=== PATIENT | female | born 1970 | race American Indian/Alaskan Native ===

== ENCOUNTER 2017-02-15 08:56 | Emergency (ER) | payer SELFPAY ==
[2017-02-15 10:32] LABS: Basophils % (Auto) 0.3 % (0.0-1.8); Eosinophils % (Auto) 0.4 % (0.0-4.3); Hematocrit 32.7 % (30.3-42.9); Hemoglobin 10.9 gm/dl (10.1-14.3); Lymphocytes # (Auto) 1.2 K/mm3 (1.2-5.4); Lymphocytes % (Auto) 21.1 % (13.4-35.0); Mean Corpuscular HGB Conc 33 % (30-34); Mean Corpuscular Hemoglobin 31 pg (28-32); Mean Corpuscular Volume 94 fl (79-97); Monocytes # (Auto) 0.8 K/mm3 (0.0-0.8); Monocytes % (Auto) 13.3 % (0.0-7.3); Platelet Count 273 K/mm3 (140-440); Red Blood Count 3.49 M/mm3 (3.65-5.03); Red Cell Distribution Width 15.2 % (13.2-15.2)
[2017-02-15 10:43] LABS: INR 0.87 (0.87-1.13); Partial Thromboplastin Time 32.2 Sec. (24.2-36.6)
[2017-02-15 10:46] LABS: BUN/Creatinine Ratio 23; Blood Urea Nitrogen 9 mg/dL (7-17); Calcium 8.9 mg/dL (8.4-10.2); Hemolysis Index 0
[2017-02-15] MEDS ORDERED: NACL 0.9% 1000 ML 0 ML ONE (14:57)
--- NOTE | 2017-02-16 02:39 | Emergency Department Report ---
ED General Adult HPI - General Chief complaint: Extremity Problem,Nontraumatic Stated complaint: L LEG SWOLLEN, R LEG SORES Time Seen by Provider: 02/16/17 02:38 Source: patient, EMS (ems notes not available at time of chart dictation), RN notes reviewed Mode of arrival: Ambulatory Limitations: No Limitations, Physical Limitation - History of Present Illness Initial comments: This is a 46-year-old female who was previously unknown to this provider, patient reports that she is undomiciled, and recently got caught outside in the extreme cold. She further reports that since then, she has been experiencing sharp and burning bilateral foot pain, which does not radiate anywhere, increases with palpation and decreases with rest. Denies headache, neck pain, chest pain, abdominal pain, shortness of breath. Also endorses bilateral lower extremity swelling. Reports that she is not . -: Gradual, days(s) Location: left, right, lower extremity Radiation: non-radiation Severity scale (0 -10): 8 Quality: burning, stabbing, aching, sharp Consistency: constant Improves with: rest Worsens with: movement Associated Symptoms: weakness. denies: confusion, chest pain, cough, diaphoresis, fever/chills, headaches, loss of appetite, malaise, nausea/vomiting , shortness of breath, syncope - Related Data Home Medications Medication Instructions Recorded Confirmed Last Taken No Known Home Medications [No 02/16/17 02/16/17 Unknown Reported Home Medications] Allergies Allergy/AdvReac Type Severity Reaction Status Date / Time No Known Allergies Allergy Unverified 02/15/17 09:18 ED Review of Systems ROS: Stated complaint: L LEG SWOLLEN, R LEG SORES Other details as noted in HPI ED Past Medical Hx - Past Medical History Previous Medical History?: Yes Hx Hypertension: Yes - Surgical History Past Surgical History?: Yes Additional Surgical History: Tubaligation, Tonsilectomy - Social History Smoking Status: Current Every Day Smoker Substance Use Type: Alcohol - Medications Home Medications: Home Medications Medication Instructions Recorded Confirmed Last Taken Type No Known Home Medications [No 02/16/17 02/16/17 Unknown History Reported Home Medications] ED Physical Exam - General Limitations: Physical Limitation General appearance: alert, in no apparent distress - Head Head exam: Present: atraumatic, normocephalic - Eye Eye exam: Present: normal appearance, EOMI. Absent: nystagmus - ENT ENT exam: Present: normal exam, normal orophraynx, mucous membranes moist, normal external ear exam - Neck Neck exam: Present: normal inspection, full ROM - Respiratory Respiratory exam: Present: normal lung sounds bilaterally. Absent: respiratory distress - Cardiovascular Cardiovascular Exam: Present: regular rate, normal rhythm, normal heart sounds. Absent: systolic murmur, diastolic murmur, rubs, gallop - GI/Abdominal GI/Abdominal exam: Present: soft, normal bowel sounds. Absent: distended, tenderness, guarding, rebound, rigid, pulsatile mass - Extremities Exam Extremities exam: Present: full ROM, tenderness, pedal edema, other (there is 2 + edema in the bilateral lower extremities. On the bilateral feet there are extensive blisters. The bilateral toes, 1 through 5 on each foot, have circumferential swelling. On the right lateral ankle, there is area of skin avulsion and breakdown. There is clear serous discharge noted from multiple blisters. There are no eschars.). Absent: calf tenderness - Back Exam Back exam: Present: normal inspection, full ROM. Absent: paraspinal tenderness , vertebral tenderness - Neurological Exam Neurological exam: Present: alert, oriented X3, CN II-XII intact, abnormal gait (patient walks with a 2 person assist), other (Extraocular movements intact. Tongue midline. No facial droop. Facial sensation intact to light touch in the V1, V2, V3 distribution bilaterally. 5 and 5 strength in 4 extremities.. Sensation is intact to light touch in 4 extremities.). Absent: motor sensory deficit - Psychiatric Psychiatric exam: Present: normal affect, normal mood - Skin Skin exam: Present: warm ED Course Vital Signs 02/15/17 02/15/17 02/15/17 09:18 14:59 23:11 Temperature 97.7 F 98.1 F 98.2 F Pulse Rate 88 94 H 99 H Respiratory 18 16 14 Rate Blood Pressure 177/102 167/101 Blood Pressure 171/104 [Left] O2 Sat by Pulse 100 100 100 Oximetry 02/16/17 02:56 Temperature Pulse Rate Respiratory 20 Rate Blood Pressure Blood Pressure [Left] O2 Sat by Pulse Oximetry ED Medical Decision Making - Lab Data Result diagrams: 02/15/17 10:28 02/15/17 10:28 Vital Signs 02/15/17 02/15/17 02/15/17 09:18 14:59 23:11 Temperature 97.7 F 98.1 F 98.2 F Pulse Rate 88 94 H 99 H Respiratory 18 16 14 Rate Blood Pressure 177/102 167/101 Blood Pressure 171/104 [Left] O2 Sat by Pulse 100 100 100 Oximetry Lab Results 02/15/17 02/15/17 02/15/17 Range/Units 10:28 10:28 10:28 WBC 5.8 (4.5-11.0) K/mm3 RBC 3.49 L (3.65-5.03) M/mm3 Hgb 10.9 (10.1-14.3) gm/dl Hct 32.7 (30.3-42.9) % MCV 94 (79-97) fl MCH 31 (28-32) pg MCHC 33 (30-34) % RDW 15.2 (13.2-15.2) % Plt Count 273 (140-440) K/mm3 Lymph % (Auto) 21.1 (13.4-35.0) % Graham % (Auto) 13.3 H (0.0-7.3) % Eos % (Auto) 0.4 (0.0-4.3) % Baso % (Auto) 0.3 (0.0-1.8) % Lymph # 1.2 (1.2-5.4) K/mm3 Graham # 0.8 (0.0-0.8) K/mm3 Eos # 0.0 (0.0-0.4) K/mm3 Baso # 0.0 (0.0-0.1) K/mm3 Seg Neutrophils % 64.9 (40.0-70.0) % Seg Neutrophils # 3.8 (1.8-7.7) K/mm3 PT 12.2 (12.2-14.9) Sec. INR 0.87 (0.87-1.13) APTT 32.2 (24.2-36.6) Sec. Sodium 140 (137-145) mmol/L Potassium 4.1 (3.6-5.0) mmol/L Chloride 100.8 (98-107) mmol/L Carbon Dioxide 28 (22-30) mmol/L Anion Gap 15 mmol/L BUN 9 (7-17) mg/dL Creatinine 0.4 L (0.7-1.2) mg/dL Estimated GFR > 60 ml/min BUN/Creatinine Ratio 23 % Glucose 78 (65-100) mg/dL Calcium 8.9 (8.4-10.2) mg/dL Troponin T < 0.010 (0.00-0.029) ng/mL - Radiology Data Radiology results: report reviewed, image reviewed LIVE [facility] NICHOLE THORNTON Female : 1970 [facility]# [id number] 02/15/17 10:01 - Radiology Dept. Note by JULI JORGE [facility] Num: [id number] : 1970 Patient Age: 46 VASCULAR LAB.PRELIMINARY REPORT.BLE VENOUS DUPLEX DONE. NO EVIDENCE OF DVT/SVT IN VESSELS VISUALIZED.ENLARGED LYMPH NODES SEEN IN BOTH GROINS. Initialized on 02/15/17 10:01 - END OF NOTE X-ray of the foot, interpreted by radiology myself: No fracture, no dislocation , extensive soft tissue swelling - Medical Decision Making Differential diagnosis, including would not limited to: Frostbite injury, cold injury, blisters Assessment and plan: 46-year-old female, who is presenting with bilateral lower foot pain, swelling, blistering, after exposure to extreme cold. This injury is concerning for second or third degree carlson bite. This hospital is out of burn center, and given the patient cannot ambulate, and appears to have a component of superinfection, she will benefit from transfer to a burn center. Case was discussed with Dr. Shaheen Richardson of the [facility], who accepted the patient is a transfer. Recommend Silvadene antibiotic. Patient was informed, and she is amenable to transfer. Laboratory studies reviewed and are otherwise unremarkable, x-ray of the foot does not demonstrate fracture or dislocation and only show soft tissue swelling which is consistent with the patient's physical examination. Critical care attestation.: If time is entered above; I have spent that time in minutes in the direct care of this critically ill patient, excluding procedure time. ED Disposition Clinical Impression: Frostbite of both lower extremities Disposition: DC/TX-02 [id number]-TRM GEN HOSP IP Is pt being admited?: No Does the pt Need Aspirin: No Condition: Good Referrals: PRIMARY CARE, [Primary Care Provider] - 3-5 Days
[2017-02-16] MEDS ORDERED: SUBLIMAZE IV ONE (02:47)
[2017-02-16] MEDS ORDERED: MOTRIN PO ONE (02:51)
[2017-02-16] MEDS ORDERED: BOOSTRIX IM ONE (02:51)
--- NOTE | 2017-02-16 03:11 | XRay Report ---
FINAL REPORT EXAM: XR FOOT BILAT 2V HISTORY: foot pain and swelling TECHNIQUE: AP and lateral views of each foot were submitted. FINDINGS: The left reveals diffuse soft tissue swelling particular around the midfoot. There is no evidence of fracture or osteomyelitis. There is no evidence of any arthritic changes. The right foot also reveals diffuse soft tissue swelling around much of the foot particularly in the midfoot. There is no evidence of fracture or osteomyelitis. There is no significant arthritic changes. IMPRESSION: Extensive bilateral swelling both feet. No evidence of fracture or osteomyelitis in either foot.
[2017-02-16] MEDS ORDERED: TYLENOL PO PRN (03:25)
[2017-02-16] MEDS ORDERED: ZOFRAN ODT PO PRN (03:25)
[2017-02-16] MEDS ORDERED: THERMAZENE 50 GRAM TP SCH (04:00)
[2017-02-16 04:11] LABS: C-Reactive Protein 4.4 mg/dL (0.00-1.30)
[2017-02-16] MEDS: SUBLIMAZE IV PRN ×2 (05:31→10:33)
--- NOTE | 2017-02-16 10:23 | Emergency Department Report ---
Blank Doc - Documentation Documentation: Patient was reevaluated by me. Patient's still has not received a bed assignment from [facility]. Patient will be transferred now to just still burn center and make an. Patient was accepted by Dr. Adan
[2017-02-16 10:28] VITALS: BP 158/80
--- NOTE | 2017-02-17 10:57 | Vascular Lab Report ---
LOWER EXTREMITY VENOUS DUPLEX: REASON FOR EXAM: Swelling of the lower extremities. COMMENTS ON THE RIGHT: All veins visualized are freely compressible without evidence of internal echogenicity. Flow is spontaneous and phasic throughout. Right inguinal adenopathy is noted. COMMENTS ON THE LEFT: All veins visualized are freely compressible without evidence of internal echogenicity. Flow is spontaneous and phasic throughout. Left inguinal adenopathy is noted. IMPRESSION: No evidence of acute or chronic deep venous thrombosis in either lower extremity.
== END 2017-02-16 12:26 | disposition short-term general hospital (02) ==
LOC: ED 08:56
DX: T33.812A Superficial frostbite of left ankle, initial encounter (principal); T33.811A Superficial frostbite of right ankle, initial encounter; I10 Essential (primary) hypertension; F17.200 Nicotine dependence, unspecified, uncomplicated; X31.XXXA Exposure to excessive natural cold, initial encounter; Y93.89 Activity, other specified; Y92.89 Other specified places as the place of occurrence of the external cause; Y99.8 Other external cause status
CPT/HCPCS: 36415; 73620; 80048; 82550; 84484; 85025; 85610; 85652; 85730; 86140; 90471; 90715; 93970; 96374; 96376; 99285; J3010; J7030

== ENCOUNTER 2017-04-18 23:23 | Emergency (ER) | payer OTHER ==
[2017-04-19 02:04] LABS: Basophils % (Auto) 0.2 % (0.0-1.8); Eosinophils # (Auto) 0.1 K/mm3 (0.0-0.4); Eosinophils % (Auto) 1.3 % (0.0-4.3); Hematocrit 27.7 % (30.3-42.9); Hemoglobin 9.4 gm/dl (10.1-14.3); Lymphocytes % (Auto) 27.4 % (13.4-35.0); Mean Corpuscular HGB Conc 34 % (30-34); Mean Corpuscular Hemoglobin 31 pg (28-32); Mean Corpuscular Volume 92 fl (79-97); Monocytes # (Auto) 0.7 K/mm3 (0.0-0.8); Monocytes % (Auto) 9.2 % (0.0-7.3); Platelet Count 411 K/mm3 (140-440); Red Blood Count 3.02 M/mm3 (3.65-5.03); Red Cell Distribution Width 15.5 % (13.2-15.2)
[2017-04-19 02:11] LABS: BUN/Creatinine Ratio 22; Blood Urea Nitrogen 13 mg/dL (7-17); Calcium 8.3 mg/dL (8.4-10.2); Hemolysis Index 0
--- NOTE | 2017-04-19 06:39 | Emergency Department Report ---
ED General Adult HPI - General Chief complaint: Wound/Laceration Stated complaint: PAIN/SWELLING BILATERAL FEET/LEGS Time Seen by Provider: 04/19/17 06:28 Source: patient Mode of arrival: Ambulatory Limitations: No Limitations - History of Present Illness Initial comments: Patient is a 46-year-old female homeless presented to the ER complaining of wound on both feet that she sustained a few months back when she had frostbite. Patient had a skin graft in September at that time. She stated that the wound was healing well but she used warm water recently and she started having some pain since then and she is worried that she might have an infection in. Patient denied any fever nausea or vomiting. No other complaints. Severity scale (0 -10): 0 - Related Data Home Medications Medication Instructions Recorded Confirmed Last Taken No Known Home Medications [No 02/16/17 02/16/17 Unknown Reported Home Medications] Allergies Allergy/AdvReac Type Severity Reaction Status Date / Time No Known Allergies Allergy Verified 02/16/17 03:27 ED Review of Systems ROS: Stated complaint: PAIN/SWELLING BILATERAL FEET/LEGS Other details as noted in HPI Comment: All other systems reviewed and negative Constitutional: denies: chills, fever Respiratory: denies: cough, orthopnea, shortness of breath, SOB with exertion Cardiovascular: denies: chest pain, palpitations Gastrointestinal: denies: abdominal pain, nausea, vomiting, diarrhea Genitourinary: denies: urgency, dysuria, frequency, hematuria ED Past Medical Hx - Past Medical History Hx Hypertension: Yes - Surgical History Additional Surgical History: Tubaligation, Tonsilectomy - Social History Smoking Status: Current Every Day Smoker Substance Use Type: None - Medications Home Medications: Home Medications Medication Instructions Recorded Confirmed Last Taken Type No Known Home Medications [No 02/16/17 02/16/17 Unknown History Reported Home Medications] ED Physical Exam - General Limitations: No Limitations General appearance: alert, in no apparent distress, other (patient is sleeping comfortably in her bed in no acute distress.) - Head Head exam: Present: atraumatic, normocephalic - Eye Eye exam: Present: normal appearance, PERRL - ENT ENT exam: Present: normal exam, normal orophraynx, mucous membranes moist - Neck Neck exam: Present: normal inspection, full ROM. Absent: tenderness, meningismus, lymphadenopathy - Respiratory Respiratory exam: Present: normal lung sounds bilaterally. Absent: respiratory distress, wheezes, rales, rhonchi, stridor, chest wall tenderness, accessory muscle use, decreased breath sounds, prolonged expiratory - Cardiovascular Cardiovascular Exam: Present: regular rate, normal rhythm, normal heart sounds - GI/Abdominal GI/Abdominal exam: Present: soft, normal bowel sounds. Absent: distended, tenderness, guarding, rebound, rigid, organomegaly, mass, bruit, pulsatile mass - Extremities Exam Extremities exam: Present: normal inspection, full ROM, normal capillary refill , pedal edema, other (skin grafting both feet healing well with good granulation tissues, no greenish discharge or erythema or warmth). Absent: tenderness, joint swelling, calf tenderness - Back Exam Back exam: Present: normal inspection, full ROM. Absent: CVA tenderness (L) - Neurological Exam Neurological exam: Present: alert, oriented X3, CN II-XII intact, normal gait - Skin Skin exam: Present: warm, dry, normal color. 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 ED Medical Decision Making - Lab Data Result diagrams: 04/19/17 01:28 04/19/17 01:28 Critical care attestation.: If time is entered above; I have spent that time in minutes in the direct care of this critically ill patient, excluding procedure time. ED Disposition Clinical Impression: Wound check, abscess Disposition: DC-01 TO HOME OR SELFCARE Is pt being admited?: No Condition: Stable Instructions: Graft Skin (On the skin) Referrals: MARGARITA SALAZAR MD [Primary Care Provider] - 3-5 Days
[2017-04-19 07:51] VITALS: BP 118/58
== END 2017-04-19 10:41 | disposition home or self-care (01) ==
LOC: ED 23:23
DX: L02.612 Cutaneous abscess of left foot (principal); L02.611 Cutaneous abscess of right foot; I10 Essential (primary) hypertension; F17.200 Nicotine dependence, unspecified, uncomplicated
CPT/HCPCS: 36415; 80048; 85025; 99283